=== PATIENT | male | born 1950 | race Caucasian/White ===

== ENCOUNTER → 2018-07-05 | Day surgery (SDC) | payer MEDICARE, BC ==
[~2018-07-05] MED LIST: Lactated Ringers 1,000 ML IV SCH; Propofol 200 MG/20 ML SDV IV ONE
--- NOTE | 2018-07-05 09:48 | OR ---
DATE OF OPERATION: 07/05/2018 PREOPERATIVE DIAGNOSIS: FOLLOWUP POLYPS. POSTOPERATIVE DIAGNOSIS: FOLLOWUP POLYPS. SURGEON: Kraig Gillette MD PROCEDURE: FULL-LENGTH COLONOSCOPY WITH FORCEPS POLYP REMOVAL X2. ANESTHESIA: MAC via JOB SUPERINTENDENT. COMPLICATIONS: None. FINDINGS: 1. Full-length colonoscopy. 2. Two small sessile polyps, likely hyperplastic. 3. Likely severe sleep apnea. SPECIMEN: Two small hyperplastic polyps, left colon. RECOMMENDATIONS: The patient should have a followup colonoscopy in 5 years. I strongly urged the patient to seek followup with his provider for sleep study. INDICATIONS: The patient had prior polyps, about 12 years ago had a large tubular adenoma removed and is yet to have a followup for surveillance. He was sent for such. DESCRIPTION OF PROCEDURE: The patient was prepped and draped, placed in a left lateral decubitus position. A lubricated Olympus colonoscope was inserted, safely and easily advanced to the cecum. Direct visualization of the ileocecal valve and appendiceal orifice was accomplished. Bowel prep was fine. Upon withdrawal of the scope, the cecum, ascending, and transverse colon were unremarkable. I did not find any lesions in the descending colon. Sigmoid colon for the most part was benign until its most distal portion, around 35 cm, the patient had a small flat sessile polyp, likely hyperplastic, removed in its entirety with forceps. No signs of any significant diverticular disease, vascular abnormalities or signs of colitis. In the proximal rectal vault, the patient had a second small sessile polyp, also likely hyperplastic, removed with forceps. Retroflexion of the scope in the rectum showed no perianal lesions. Air was suctioned and scope removed without complication. To note, the patient had signs of severe sleep apnea during his procedure and it is recommended he seek a sleep study in that regard. JULISSA/ROGER /[id number]
== END ==
LOC: CC.SDS 06:22
PROVIDERS: ATTEND Family Medicine
DX: Z12.11 Encounter for screening for malignant neoplasm of colon (principal); D12.5 Benign neoplasm of sigmoid colon; D12.8 Benign neoplasm of rectum; I10 Essential (primary) hypertension; E11.9 Type 2 diabetes mellitus without complications; E66.9 Obesity, unspecified; Z68.41 Body mass index [BMI] 40.0-44.9, adult; K21.9 Gastro-esophageal reflux disease without esophagitis; E78.5 Hyperlipidemia, unspecified; M10.9 Gout, unspecified; Z86.010 Personal history of colon polyps; Z79.899 Other long term (current) drug therapy
CPT/HCPCS: 45380; J2704; J7120

== ENCOUNTER 2023-06-29 10:02 | Day surgery (SDC) | payer MEDICARE, BC ==
[2023-06-29] MEDS: Lactated Ringers 1,000 ML IV SCH (10:15)
[2023-06-29] MEDS ORDERED: fentaNYL 50 MCG/ML SDV ONE (11:01)
[2023-06-29] MEDS ORDERED: Propofol 200 MG/20 ML SDV ONE (11:01)
== END 2023-06-29 12:10 | disposition home or self-care (01) ==
LOC: CC.SDS 10:02
PROVIDERS: ATTEND Family Medicine
DX: Z12.11 Encounter for screening for malignant neoplasm of colon (principal); K57.30 Diverticulosis of large intestine without perforation or abscess without bleeding; N52.9 Male erectile dysfunction, unspecified; K21.9 Gastro-esophageal reflux disease without esophagitis; M10.9 Gout, unspecified; E78.5 Hyperlipidemia, unspecified; I10 Essential (primary) hypertension; E11.9 Type 2 diabetes mellitus without complications; H91.90 Unspecified hearing loss, unspecified ear; G47.33 Obstructive sleep apnea (adult) (pediatric); E66.9 Obesity, unspecified; Z68.36 Body mass index [BMI] 36.0-36.9, adult; Z79.899 Other long term (current) drug therapy; Z86.010 Personal history of colon polyps
CPT/HCPCS: J2704; J3010; J7120

== ENCOUNTER 2024-09-24 11:38 | Emergency (ER) | payer MEDICARE, BC ==
[2024-09-24] MEDS: Sodium Chloride 0.9% 1,000 ML IV ONE (11:46)
[2024-09-24] MEDS: HYDROmorphone 1 MG/ML Syringe IVPUSH ONE ×2 (11:46→13:03)
[2024-09-24] MEDS: Ondansetron 4 MG/2 ML SDV IVPUSH STA (11:47)
[2024-09-24] MEDS: Diphtheria,Pertussis(Acell),Tetanus Vaccine 0.5 ML Syringe IM ONE (11:47)
[2024-09-24] MEDS: ceFAZolin 2 GM Vial IVPUSH ONE (11:48)
[2024-09-24] MEDS: Lidocaine 1% 5 ML VIAL INJECT ONE (11:49)
[2024-09-24 12:06] LABS: BASOPHILS ABSOLUTE AUTO 0.03 10^3/uL (0.00-0.50); BASOPHILS PERCENT AUTO 0.4 % (0-1); EOSINOPHILS ABSOLUTE AUTO 0.14 10^3/uL (0.00-1.50); EOSINOPHILS PERCENT AUTO 1.9 % (0-6); HEMATOCRIT 46.3 % (42.0-52.0); HEMOGLOBIN 15.9 g/dL (14.0-18.0); IMMATURE GRAN ABSOLUTE AUTO 0.01 10^3/uL (0.00-0.49); IMMATURE GRAN PERCENT AUTO 0.1 % (0.0-4.9); LYMPHOCYTES ABSOLUTE AUTO 1.87 10^3/uL (0.60-5.00); LYMPHOCYTES PERCENT AUTO 25.1 % (24-44); MEAN CORPUSCULAR HEMOGLOBIN 33.1 pg (27.0-32.0); MEAN CORPUSCULAR HGB CONC 34.3 g/dL (32.0-36.0); MEAN CORPUSCULAR VOLUME 96.3 fL (83.0-97.0); MONOCYTES ABSOLUTE AUTO 0.62 10^3/uL (0.00-1.50); MONOCYTES PERCENT AUTO 8.3 % (0-10); NEUTROPHILS ABSOLUTE AUTO 4.78 x10^3/uL (1.80-8.00); NEUTROPHILS PERCENT AUTO 64.2 % (41-71); PLATELET COUNT,PLT 140 10^3/uL (150-400); RED BLOOD CELL COUNT 4.81 x10^6/uL (4.50-6.00); WHITE BLOOD CELL COUNT,WBC 7.5 10^3/uL (4.0-11.0)
[2024-09-24 12:19] LABS: ALANINE AMINOTRANSFERASE,ALT 38 U/L (12-78); ALKALINE PHOSPHATASE 93 U/L (46-116); ASPARTATE AMNIOTRANSFERASE,AST 19 U/L (15-37); BILIRUBIN TOTAL 0.9 mg/dL (0.0-1.0); BLOOD UREA NITROGEN,BUN 19 mg/dL (7-18); CALCIUM 9.4 mg/dL (8.4-10.1); CARBON DIOXIDE,CO2 25 mmol/L (21-32); CHLORIDE,CL 102 mEq/L (98-106); CREATININE 1.4 mg/dL (0.7-1.3); GLUCOSE RANDOM 144 mg/dL (75-99); MAGNESIUM 1.7 mg/dL (1.8-2.4); PROTEIN TOTAL,TP 6.8 g/dL (6.4-8.2); SODIUM,NA 139 mEq/L (136-145)
[2024-09-24 12:20] LABS: ESTIMATED GFR 53 mL/min (>=60)
[2024-09-24] MEDS: Sodium Chloride 0.9% 1,000 ML IV SCH (13:02)
== END 2024-09-24 14:40 ==
LOC: CC.ED 11:38
DX: S68.110A Complete traumatic metacarpophalangeal amputation of right index finger, initial encounter (principal); S68.112A Complete traumatic metacarpophalangeal amputation of right middle finger, initial encounter; Z79.899 Other long term (current) drug therapy; Z23 Encounter for immunization; Z79.85 Long-term (current) use of injectable non-insulin antidiabetic drugs; W27.0XXA Contact with workbench tool, initial encounter; Y93.89 Activity, other specified
CPT/HCPCS: 36415; 64450; 73130-RT; 80053; 83735; 85025; 90471; 90715; 96361; 96374; 96375; 96376; 99283; 99284-25; J0690; J1171; J2003; J2405; J7030